=== PATIENT | female | born 1995 | race Caucasian/White ===

== ENCOUNTER 2017-08-01 11:15 | Inpatient (IN) ==
[2017-08-01 11:53] LABS: Apearance,Urine Slightly Hazy (Clear); Bacteria,Urine Occasional /HPF (Few); Bilirubin,Urine Negative (Negative); Blood, Urine Negative (Negative); Glucose,Urine (UA) Negative (Negative); Ketones,Urine Negative (Negative); Mucus,Urine Occasional /LPF (Occasional); Nitrite,Urine Negative (Negative); Protein,Urine Negative; RBC,Urine 1 /HPF (0-4); Squamous Epithelial Cell,Urine Occasional /HPF (0-10); Urine Color Yellow (Yellow); Urine Specific Gravity 1.019 (1.001-1.035); WBC,Urine 2 /HPF (0-6)
[2017-08-01 12:09] LABS: Basophils % 0.5 % (0.0-0.8); Eosinophils # 0.2 10*3/uL (0.0-0.87); Eosinophils % 3.2 % (0.00-10.9); Hematocrit 40.3 VOL% (35.7-47.0); Hemoglobin 14.4 GM/DL (12.0-16.0); Immature Granulocytes % 0.3 %; Immature Granulocytes Absolute 0.02 #; Lymphocytes # 1.9 10*3/uL (1.4-4.0); Lymphocytes % 29.7 % (21.3-54.2); Mean Corpuscular HGB Conc 35.7 GM/DL (32-36); Mean Corpuscular Hemoglobin 32 PG (27-34); Mean Corpuscular Volume 90.4 FL (87-102); Mean Platelet Volume 11.4 FL (9.6-12.0); Monocytes # 0.7 10*3/uL (0.11-0.8); Monocytes % 10.6 % (1.7-12.7); Neutrophils # 3.5 10*3/uL (1.4-7.4); Neutrophils % 55.7 % (38.7-73.9); Platelet Count 204 T/CUMM (130-400); Red Blood Count 4.46 MC/CUMM (3.8-5.5); Red Cell Distribution Width 11.4 % (9.3-17.3); White Blood Count 6.3 T/CUMM (4-12)
[2017-08-01 12:30] LABS: Albumin 4.3 G/DL (3.4-5.0); Bilirubin,Total 0.7 MG/DL (0.2-1.0); Calcium 8.7 MG/DL (8.5-10.1); Osmolality,Calculated 276.5 MOS/KG (273-304); Potassium 4.3 MMOL/L (3.5-5.1); Total Protein 7.4 G/DL (6.4-8.3)
[2017-08-01] MEDS ORDERED: SODIUM CHLORIDE 0.9% 1,000 ML IV STA (13:16)
[2017-08-01] MEDS ORDERED: cloNIDine 0.1 MG TABLET PO STA (13:16)
[2017-08-01] MEDS ORDERED: cloNIDine 0.1 MG TABLET ONE (13:18)
[2017-08-01] MEDS ORDERED: ACETAMINOPHEN 325 MG TABLET PO PRN (14:27)
[2017-08-01] MEDS ORDERED: ONDANSETRON 4 MG/2 ML VIAL IV PRN (14:27)
[2017-08-01] MEDS ORDERED: INFLUENZA VIRUS VACCINE 0.5 ML SYRINGE IM ONE (15:33)
[2017-08-01] MEDS: SODIUM CHLORIDE 0.9% 1,000 ML IV SCH (15:48)
[2017-08-01] MEDS: PANTOPRAZOLE 40 MG TABLET PO SCH (20:36)
[2017-08-02] MEDS: SODIUM CHLORIDE 0.9% 1,000 ML IV SCH (05:10)
[2017-08-02 06:19] LABS: Basophils % 0.7 % (0.0-0.8); Eosinophils # 0.2 10*3/uL (0.0-0.87); Eosinophils % 5.2 % (0.00-10.9); Hematocrit 37.9 VOL% (35.7-47.0); Hemoglobin 13.8 GM/DL (12.0-16.0); Immature Granulocytes % 0.2 %; Immature Granulocytes Absolute 0.01 #; Lymphocytes # 1.9 10*3/uL (1.4-4.0); Lymphocytes % 43.4 % (21.3-54.2); Mean Corpuscular HGB Conc 36.4 GM/DL (32-36); Mean Corpuscular Hemoglobin 32 PG (27-34); Mean Corpuscular Volume 88.8 FL (87-102); Mean Platelet Volume 11.6 FL (9.6-12.0); Monocytes # 0.3 10*3/uL (0.11-0.8); Monocytes % 7.5 % (1.7-12.7); Neutrophils # 1.9 10*3/uL (1.4-7.4); Platelet Count 197 T/CUMM (130-400); Red Blood Count 4.27 MC/CUMM (3.8-5.5); Red Cell Distribution Width 11.7 % (9.3-17.3); White Blood Count 4.4 T/CUMM (4-12)
[2017-08-02 06:54] LABS: Calcium 8.4 MG/DL (8.5-10.1); Osmolality,Calculated 276.4 MOS/KG (273-304)
[2017-08-02 07:35] LABS: Albumin 3.6 G/DL (3.4-5.0); Bilirubin,Direct 0.24 MG/DL (0.0-0.20); Bilirubin,Indirect 0.6 MG/DL (0.0-1.0); Bilirubin,Total 0.8 MG/DL (0.2-1.0); Total Protein 6.9 G/DL (6.4-8.3)
[2017-08-02] MEDS ORDERED: METOCLOPRAMIDE 5 MG TABLET PO SCH (09:00)
[2017-08-02] MEDS ORDERED: PANTOPRAZOLE 40 MG TABLET PO SCH (09:00)
[2017-08-02] MEDS: PANTOPRAZOLE 40 MG TABLET PO SCH ×2 (09:19→20:48)
[2017-08-03] MEDS: SODIUM CHLORIDE 0.9% 1,000 ML IV SCH ×2 (04:30→17:58)
[2017-08-03 06:29] LABS: Basophils % 0.2 % (0.0-0.8); Eosinophils # 0.2 10*3/uL (0.0-0.87); Eosinophils % 4.4 % (0.00-10.9); Hematocrit 36.3 VOL% (35.7-47.0); Hemoglobin 13.4 GM/DL (12.0-16.0); Immature Granulocytes % 0.2 %; Immature Granulocytes Absolute 0.01 #; Lymphocytes # 1.4 10*3/uL (1.4-4.0); Lymphocytes % 32.9 % (21.3-54.2); Mean Corpuscular HGB Conc 36.9 GM/DL (32-36); Mean Corpuscular Hemoglobin 32 PG (27-34); Mean Corpuscular Volume 87.5 FL (87-102); Mean Platelet Volume 11.7 FL (9.6-12.0); Monocytes # 0.4 10*3/uL (0.11-0.8); Monocytes % 9.5 % (1.7-12.7); Neutrophils # 2.2 10*3/uL (1.4-7.4); Neutrophils % 52.8 % (38.7-73.9); Platelet Count 166 T/CUMM (130-400); Red Blood Count 4.15 MC/CUMM (3.8-5.5); Red Cell Distribution Width 11.4 % (9.3-17.3); White Blood Count 4.1 T/CUMM (4-12)
[2017-08-03 07:00] LABS: Albumin 3.4 G/DL (3.4-5.0); Bilirubin,Total 0.9 MG/DL (0.2-1.0); Calcium 8.6 MG/DL (8.5-10.1); Osmolality,Calculated 275.4 MOS/KG (273-304); Potassium 3.8 MMOL/L (3.5-5.1); Risk Ratio 5.27; Total Protein 6.7 G/DL (6.4-8.3); VLDL CHOLESTEROL 26.2 MG/DL
[2017-08-03] MEDS: PANTOPRAZOLE 40 MG TABLET PO SCH ×2 (08:23→21:34)
[2017-08-03 09:20] LABS: Hepatitis A Ab IgM Quant 0.15 Index; Hepatitis A Ab IgM Result Negative (Negative); Hepatitis B Core IgM Quant 0.17 Index; Hepatitis B Core IgM Result Negative (Negative); Hepatitis B Surface Ag Quant < 0.10 Index; Hepatitis B Surface Ag Result Negative (Negative); Hepatitis C Virus Ab Quant 0.11 Index; Hepatitis C Virus Ab Result Negative (Negative)
[2017-08-04 06:08] LABS: Albumin 3.4 G/DL (3.4-5.0); Bilirubin,Direct 0.22 MG/DL (0.0-0.20); Bilirubin,Indirect 0.6 MG/DL (0.0-1.0); Bilirubin,Total 0.8 MG/DL (0.2-1.0); Total Protein 6.4 G/DL (6.4-8.3)
[2017-08-04] MEDS: SODIUM CHLORIDE 0.9% 1,000 ML IV SCH (06:43)
[2017-08-04] MEDS: PANTOPRAZOLE 40 MG TABLET PO SCH ×2 (11:27→21:53)
[2017-08-04] MEDS ORDERED: PROPOFOL 200 MG/20 ML VIAL IV ONE (14:12)
[2017-08-04] MEDS ORDERED: LIDOCAINE 1% 5 ML VIAL ONE (14:12)
[2017-08-04 21:24] LABS: % Iron Saturation 37.9 % (18-50)
[2017-08-04] MEDS: LOSARTAN 50 MG TABLET PO SCH (21:53)
[2017-08-05] MEDS: SODIUM CHLORIDE 0.9% 1,000 ML IV SCH (06:14)
[2017-08-05] MEDS: LOSARTAN 50 MG TABLET PO SCH (08:16)
[2017-08-05] MEDS: PANTOPRAZOLE 40 MG TABLET PO SCH (08:16)
[2017-08-05] MEDS ORDERED: amLODIPine 10 MG TABLET PO SCH (09:00)
[2017-08-05 09:37] LABS: Albumin 3.7 G/DL (3.4-5.0); Calcium 8.8 MG/DL (8.5-10.1); Osmolality,Calculated 271.7 MOS/KG (273-304); Potassium 3.9 MMOL/L (3.5-5.1); Total Protein 7.4 G/DL (6.4-8.3)
[2017-08-05 11:35] VITALS: BP 139/78
[2017-08-05] MEDS ORDERED: INFLUENZA VIRUS VACCINE 0.5 ML SYRINGE IM ONE (13:44)
[2017-08-07 05:25] LABS: Anti SS-A Antibodies > 100 EU/ML; Anti SS-B Antibodies < 16 EU/ML
[2017-08-07 05:29] LABS: Anti-Nuclear Antibody Pattern SPECKLED
== END 2017-08-05 15:10 | disposition home or self-care (01) | DRG 391 ==
LOC: N.ED 11:15 → N.EDINP 13:18 → SUATTDRO 13:18 → N.2E 15:00
PROVIDERS: ADMIT Internal Medicine; ATTEND Internal Medicine